=== PATIENT | female | born 1985 | race Caucasian/White ===

== ENCOUNTER 2018-06-30 21:31 | Emergency (ER) | payer SELFPAY ==
--- NOTE | 2018-06-30 21:45 | Emergency Department Report ---
Blank Doc - Documentation Documentation: This is a 32-year-old female that presents with vaginal bleeding. Stated is about 9 weeks and started 8 days ago. Pelvic pain without radiation. This initial assessment diagnostic orders/clinical plan/treatment(s) is/are subject to change based on patient's health status, clinical progression and re- assessment by fellow clinical providers in the ED. Further treatment and workup at subsequent clinical providers discretion. Patient/guardians urged not to el ope from ED s their condition may be serious if not clinically assessed and managed. Initial orders include: 1-Patient sent to [facility] for further evaluation and treatment 2- Labs 3- UA 4- US OB
[2018-06-30 22:07] LABS: Basophils % (Auto) 0.3 % (0.0-1.8); Eosinophils # (Auto) 0.1 K/mm3 (0.0-0.4); Eosinophils % (Auto) 0.9 % (0.0-4.3); Hematocrit 35.5 % (30.3-42.9); Hemoglobin 12.4 gm/dl (10.1-14.3); Lymphocytes # (Auto) 2.7 K/mm3 (1.2-5.4); Lymphocytes % (Auto) 32.4 % (13.4-35.0); Mean Corpuscular HGB Conc 35 % (30-34); Mean Corpuscular Volume 88 fl (79-97); Monocytes # (Auto) 0.6 K/mm3 (0.0-0.8); Platelet Count 289 K/mm3 (140-440); Red Blood Count 4.05 M/mm3 (3.65-5.03); Red Cell Distribution Width 15.2 % (13.2-15.2)
[2018-06-30] MEDS ORDERED: ZOFRAN ORAL LIQ PO ONE (23:29)
[2018-06-30] MEDS ORDERED: TYLENOL PO ONE (23:29)
--- NOTE | 2018-06-30 23:47 | Emergency Department Report ---
ED Female HPI - General Chief complaint: Vaginal Bleeding Stated complaint: BLEEDING 9 WEEKS PREGGERS Time Seen by Provider: 06/30/18 21:43 Source: patient, RN notes reviewed Mode of arrival: Ambulatory Limitations: Language Barrier - History of Present Illness Initial comments: [facility] This provider is conversational in Portuguese, and the patient has requested that her partner translate for her. This is a 32-year-old female who is 4, para 2, last menstrual period, April 23, with no chronic medical conditions. The patient presents to the emergency room with a complaint of vaginal bleeding and spotting for the past 8 days, increase in spotting today, and passing large clots and a mass earlier on today. The bleeding is intermittent, cramping, does not radiate anywhere, does not have exacerbating or relieving factors. No fevers, chills, upper abdominal pain, sore throat or other symptoms. Patient denies irritative/obstructive urinary symptoms. Patient has outpatient ultrasound with her, which is perform ed within the past week and a half, which indicates an intrauterine . MD Complaint: vaginal bleeding, pelvic pain -: Gradual Location: suprapubic Radiation: non-radiating Severity: mild Quality: cramping Consistency: intermittent Improves with: none Worsens with: none Are you Now?: Yes Associated Symptoms: vaginal bleeding, abdominal pain, loss of appetite. denies: vaginal discharge, nausea/vomiting, fever/chills, headaches, dysuria, hematuria, rash, seizure, shortness of breath, syncope, weakness - Related Data Sexually active: Yes Previous Rx's Medication Instructions Recorded Last Taken Type Ibuprofen [Motrin] 600 mg PO Q8H PRN #30 tablet 07/01/18 Unknown Rx Nitrofurantoin [place]/M-Cryst 100 mg PO Q12HR #14 capsule 07/01/18 Unknown Rx [Macrobid CAP] Allergies Allergy/AdvReac Type Severity Reaction Status Date / Time No Known Allergies Allergy Unverified 06/30/18 21:34 ED Review of Systems ROS: Stated complaint: BLEEDING 9 WEEKS PREGGERS Other details as noted in HPI Constitutional: malaise Eyes: denies: vision change ENT: denies: epistaxis Respiratory: denies: cough Cardiovascular: denies: chest pain Gastrointestinal: abdominal pain Genitourinary: abnormal menses. denies: dysuria Musculoskeletal: denies: back pain Skin: denies: lesions Neurological: denies: headache Psychiatric: anxiety ED Past Medical Hx - Past Medical History Hx Diabetes: Yes Hx Kidney Stones: Yes - Surgical History Past Surgical History?: No - Social History Smoking Status: Never Smoker Substance Use Type: None - Medications Home Medications: Home Medications Medication Instructions Recorded Confirmed Last Taken Type Ibuprofen [Motrin] 600 mg PO Q8H PRN #30 tablet 07/01/18 Unknown Rx Nitrofurantoin [place]/M-Cryst 100 mg PO Q12HR #14 capsule 07/01/18 Unknown Rx [Macrobid CAP] ED Physical Exam - General Limitations: Language Barrier General appearance: alert, in no apparent distress - Head Head exam: Present: atraumatic, normocephalic - Eye Eye exam: Present: normal appearance, EOMI. Absent: nystagmus - ENT ENT exam: Present: normal exam, normal orophraynx, mucous membranes moist, normal external ear exam - Neck Neck exam: Present: normal inspection, full ROM. Absent: tenderness, meningismus - Respiratory Respiratory exam: Present: normal lung sounds bilaterally. Absent: respiratory distress - Cardiovascular Cardiovascular Exam: Present: regular rate, normal rhythm, normal heart sounds. Absent: bradycardia, tachycardia, irregular rhythm, systolic murmur, diastolic m urmur, rubs, gallop - GI/Abdominal GI/Abdominal exam: Present: soft. Absent: distended, tenderness, guarding, rebound, rigid, pulsatile mass - External exam: Present: normal external exam, other (chaperoned by nurse Rigoberto Lugo). Absent: erythema, swelling, lesions, lacerations, ecchymosis Speculum exam: Present: vaginal bleeding - Extremities Exam Extremities exam: Present: normal inspection, full ROM, other (2+ pulses noted in the bilateral upper, lower extremities. Compartments soft. No long bony tenderness. The pelvis is stable.). Absent: pedal edema, joint swelling, calf tenderness - Back Exam Back exam: Present: normal inspection, full ROM. Absent: tenderness, CVA tenderness (R), paraspinal tenderness, vertebral tenderness - Neurological Exam Neurological exam: Present: alert, other (Extraocular movements intact. Tongue midline. No facial droop. Facial sensation intact to light touch in the V1, V2, V3 distribution bilaterally. 5 and 5 strength in 4 extremities.. Sensation is intact to light touch in 4 extremities.). Absent: motor sensory deficit - Psychiatric Psychiatric exam: Present: normal affect, normal mood - Skin Skin exam: Present: warm, dry, intact, normal color. Absent: rash ED Course Vital Signs 06/30/18 06/30/18 06/30/18 21:37 23:14 23:16 Temperature 98.2 F Pulse Rate 99 H 88 82 Respiratory 18 16 Rate Blood Pressure 122/75 111/49 O2 Sat by Pulse 99 Oximetry 06/30/18 07/01/18 23:59 01:06 Temperature Pulse Rate Respiratory 19 18 Rate Blood Pressure O2 Sat by Pulse 99 Oximetry - Reevaluation(s) Reevaluation #1: 06/30/18 23:57 Differential diagnosis, including but not limited to: Threatened miscarriage, inevitable miscarriage, incomplete miscarriage, retained products of conception Assessment and plan: 32-year-old female with reported vaginal bleeding, and passing large amount of tissue earlier on today. Patient has outpatient records with her, and they indicate sonographically proven intrauterine . History, physical concerning for spontaneous miscarriage. We will treat the patient's symptoms, and obtain ultrasound. Blood pressure stable, patient is Rh+. Reevaluation #2: 07/01/18 02:10 The patient is reassessed. No is identified. This is likely consistent with completed miscarriage. Explained this to patient. She is instructed to rest, avoid heavy lifting, and to follow-up with her leaded glass installer. ED Medical Decision Making - Lab Data Result diagrams: 06/30/18 21:49 Vital Signs 06/30/18 06/30/18 06/30/18 21:37 23:14 23:16 Temperature 98.2 F Pulse Rate 99 H 88 82 Respiratory 18 16 Rate Blood Pressure 122/75 111/49 O2 Sat by Pulse 99 Oximetry Lab Results 06/30/18 06/30/18 06/30/18 Range/Units 21:49 21:49 21:49 WBC 8.4 (4.5-11.0) K/mm3 RBC 4.05 (3.65-5.03) M/mm3 Hgb 12.4 (10.1-14.3) gm/dl Hct 35.5 (30.3-42.9) % MCV 88 (79-97) fl MCH 31 (28-32) pg MCHC 35 H (30-34) % RDW 15.2 (13.2-15.2) % Plt Count 289 (140-440) K/mm3 Lymph % (Auto) 32.4 (13.4-35.0) % [place] % (Auto) 7.0 (0.0-7.3) % Eos % (Auto) 0.9 (0.0-4.3) % Baso % (Auto) 0.3 (0.0-1.8) % Lymph # 2.7 (1.2-5.4) K/mm3 [place] # 0.6 (0.0-0.8) K/mm3 Eos # 0.1 (0.0-0.4) K/mm3 Baso # 0.0 (0.0-0.1) K/mm3 Seg Neutrophils % 59.4 (40.0-70.0) % Seg Neutrophils # 5.0 (1.8-7.7) K/mm3 HCG, Quant 16889 H (0-4) mIU/mL Blood Type O POSITIVE Antibody Screen Negative - Radiology Data Radiology results: report reviewed, image reviewed Print Report Referring Physician: JUDY SULLIVAN Patient Name: LEIGH OSBORNE Date of : 1985 Sex: Female Report Date: 2018-07-01 Report Status: [place] [address] Ultrasound Report Signed Patient: LEIGH OSBORNE MR#: [id number] : 1985 Acct:[id number] Age/Sex: 32 / F ADM Date: 06/30/18 Loc: ED Attending Dr: Ordering Physician: JUDY SULLIVAN NP Date of Service: 06/30/18 Procedure(s): US OB <= 14 weeks fetus Accession Number(s): [id number] cc: JUDY SULLIVAN NP FINAL REPORT PROCEDURE: US OB LESS THAN 14 WEEKS TECHNIQUE: Real-time TRANSABDOMINAL sonography of the uterus, placenta, amniotic fluid, adnexa, and fetus was performed with image documentation. Measurements were obtained to det ermine age/size. M-mode Doppler was used to document heartbeat. HISTORY: vaginal bleeding COMPARISON: No prior studies are available for comparison. FINDINGS: No intrauterine or-ectopic is identified. Uterus measures 10.9 x 5.5 x 5 centimeters. The endometrium is thickened measuring 2.1 centimeters. There is no endometrial fluid. The right ovary measures 3.2 x 1 x 2.4 centimeters. There is an 8 millimeter complex cyst. Left ovary measures 3.1 x 1.7 x 3.3 centimeters. There is complex cysts measuring 18 millimeters and a 2nd complex cyst measuring 17 millimeters. There is no free fluid. IMPRESSION: No is identified. There are complex ovarian cysts but no specific evidence of ectopic . Transcribed By: CO Dictated By: ZAID HAMM MD Electronically Authenticated By: ZAID HAMM MD Signed Date/Time: 07/01/18 0130 Critical care attestation.: If time is entered above; I have spent that time in minutes in the direct care of this critically ill patient, excluding procedure time. ED Disposition Clinical Impression: Miscarriage Disposition: DC-01 TO HOME OR SELFCARE Is pt being admited?: No Does the pt Need Aspirin: No Condition: Stable Instructions: Spontaneous Miscarriage (ED) Additional Instructions: Ultrasound did not demonstrate intrauterine . Patient most likely had complete miscarriage. Rest, avoid heavy lifting, and avoid strenuous physical activity. Do not have sex until cleared by your leaded glass installer. Follow-up with your RECOVERY AGENT doctor within the next 3-5 days. Repeat checkup/evaluation. Take the antibiotics as directed as the urine test demonstrated bacteria in the urine. Return to the emergency room right away with new pain, worsening pain, migration of pain, bleeding within 2 pads soaked per hour, lightheadedness, loss of consciousness, change in mental status, confusion. La ecografa no demostr embarazo intrauterino. El paciente probablemente tuvo un aborto espontneo completo. Descanse, evite levantar objetos pesados ??y evite la actividad fsica extenuante. No tenga relaciones sexuales hasta que rowell gineclogo lo apruebe. Mario un seguimiento con rowell mdico obstetra / gineclogo en los prximos 3 a 5 carcamo. Repita el chequeo / evaluacin. [place] los antibiticos segn las indicaciones, ya que la prueba de orina demostr bacterias en la orina. Regrese a la arsalan de emergencias de inmediato con dolor nuevo, dolor que empeora, migracin del dolor, sangrado dentro de 2 almohadillas empapadas por hora, mareos, prdida de conciencia, cambio en el estado mental, confusin. Referrals: [facility] [Provider Group] - 3-5 Days [facility] [Provider Group] - 3-5 Days [facility] [Provider Group] - 3-5 Days Print Language: FINNISH
[2018-07-01 00:19] LABS: Bilirubin,Urine NEG (Negative); Blood,Urine LG (Negative); Color,Urine Red (Yellow); Urobilinogen,Urine < 2.0 mg/dL (<2.0)
[2018-07-01 00:20] LABS: RBC,Urine > 182.0 /HPF (0.0-6.0)
[2018-07-01 00:21] LABS: Hyaline Casts,Urine 1 /LPF; Mucus,Urine 2+ /HPF; WBC,Urine > 182.0 /HPF (0.0-6.0)
[2018-07-01 00:22] LABS: Bacteria,Urine 2+ /HPF (Negative)
[2018-07-01 00:23] LABS: Amorphous Crystals,Urine 1+
--- NOTE | 2018-07-01 01:30 | Ultrasound Report ---
FINAL REPORT PROCEDURE: US OB TRANSVAGINAL TECHNIQUE: Real-time transvaginal sonography of the uterus, placenta, amniotic fluid, adnexa, and fe tus was performed with image documentation. Measurements were obtained to determine age/size. M -mode Doppler was used to document heartbeat. CPT 29796 HISTORY: vaginal bleeding COMPARISON: No prior studies are available for comparison. FINDINGS: No intrauterine or-ectopic is identified. Uterus measures 10.9 x 5.5 x 5 centimeters. The endometrium is thickened measuring 2.1 centimeters. T here is no endometrial fluid. The right ovary measures 3.2 x 1 x 2.4 centimeters. There is an 8 millimeter complex cyst. Left ovary measures 3.1 x 1.7 x 3.3 centimeters. There is complex cysts measuring 18 millimeters and a 2nd complex cyst measuring 17 millimeters. There is no free fluid. IMPRESSION: No is identified. There are complex ovarian cysts but no specific evidence of ectopic pregn farrah.
--- NOTE | 2018-07-01 01:30 | Ultrasound Report ---
FINAL REPORT PROCEDURE: US OB LESS THAN 14 WEEKS TECHNIQUE: Real-time TRANSABDOMINAL sonography of the uterus, placenta, amniotic fluid, adnexa, and fetus was performed with image documentation. Measurements were obtained to determine age/size. M-mode Doppler was used to document heartbeat. HISTORY: vaginal bleeding COMPARISON: No prior studies are available for comparison. FINDINGS: No intrauterine or-ectopic is identified. Uterus measures 10.9 x 5.5 x 5 centimeters. The endometrium is thickened measuring 2.1 centimeters. T here is no endometrial fluid. The right ovary measures 3.2 x 1 x 2.4 centimeters. There is an 8 millimeter complex cyst. Left ovary measures 3.1 x 1.7 x 3.3 centimeters. There is complex cysts measuring 18 millimeters and a 2nd complex cyst measuring 17 millimeters. There is no free fluid. IMPRESSION: No is identified. There are complex ovarian cysts but no specific evidence of ectopic pregn farrah.
[2018-07-01 02:23] VITALS: BP 118/57
== END 2018-07-01 02:32 | disposition home or self-care (01) ==
LOC: ED 21:31
DX: O03.9 Complete or unspecified spontaneous abortion without complication (principal); Z3A.09 9 weeks gestation of pregnancy
CPT/HCPCS: 36415; 76801; 76817; 81001; 84702; 85025; 86850; 86900; 86901; 99284; Q0162

== ENCOUNTER 2018-10-03 19:05 | Emergency (ER) | payer SELFPAY ==
[2018-10-03 20:06] LABS: Basophils % (Auto) 0.2 % (0.0-1.8); Eosinophils # (Auto) 0.1 K/mm3 (0.0-0.4); Eosinophils % (Auto) 0.6 % (0.0-4.3); Hemoglobin 12.2 gm/dl (10.1-14.3); Lymphocytes % (Auto) 27.4 % (13.4-35.0); Mean Corpuscular HGB Conc 36 % (30-34); Mean Corpuscular Volume 88 fl (79-97); Monocytes # (Auto) 0.8 K/mm3 (0.0-0.8); Monocytes % (Auto) 7.8 % (0.0-7.3); Platelet Count 303 K/mm3 (140-440); Red Blood Count 3.85 M/mm3 (3.65-5.03)
[2018-10-03 20:19] LABS: Alanine Aminotransferase 13 units/L (7-56); Albumin 3.6 g/dL (3.9-5); BUN/Creatinine Ratio 26; Blood Urea Nitrogen 13 mg/dL (7-17); Calcium 8.5 mg/dL (8.4-10.2); Hemolysis Index 6
[2018-10-03] MEDS ORDERED: NORCO 5/325 PO ONE (20:50)
[2018-10-03 21:09] LABS: Bilirubin,Urine NEG (Negative); Blood,Urine NEG (Negative); Color,Urine Yellow (Yellow); Mucus,Urine FEW /HPF; Protein,Urine <15 mg/dL mg/dL (Negative); Urobilinogen,Urine < 2.0 mg/dL (<2.0)
[2018-10-03 21:12] LABS: HCG Qualitative,Urine Positive (Negative)
--- NOTE | 2018-10-03 22:56 | Emergency Department Report ---
ED Abdominal Pain HPI - General Chief Complaint: Abdominal Pain Stated Complaint: VAGINAL/LEG PAIN Time Seen by Provider: 10/03/18 20:36 Source: patient, family Mode of arrival: Ambulatory Limitations: Language Barrier ( translating at bedside) - History of Present Illness Initial Comments: 32-year-old female presents to ED with 5 day history of left pelvic pain. This pain radiates into the left leg. Patient states it seems as if she can feel a mass there. Denies nausea, vomiting, fever, urinary frequency, vaginal discharge, vaginal bleeding. Patient reports LMP was one month ago. MD Complaint: abdominal pain -: days(s) (5) Location: LLQ Radiation: other (left leg) Migration to: no migration Severity: moderate Severity scale (0 -10): 4 Quality: fullness, sharp Consistency: constant Improves With: nothing Worsens With: other (walking) Associated Symptoms: denies: nausea, vomiting, diarrhea, fever, dysuria Treatments Prior to Arrival: NSAIDs - Related Data LMP (females 10-50): 1 month Previous Rx's Medication Instructions Recorded Last Taken Type Ibuprofen [Motrin] 600 mg PO Q8H PRN #30 tablet 07/01/18 Unknown Rx Nitrofurantoin [place]/M-Cryst 100 mg PO Q12HR #14 capsule 07/01/18 Unknown Rx [Macrobid CAP] Allergies Allergy/AdvReac Type Severity Reaction Status Date / Time No Known Allergies Allergy Verified 10/03/18 19:32 ED Review of Systems ROS: Stated complaint: VAGINAL/LEG PAIN Other details as noted in HPI Comment: All other systems reviewed and negative Constitutional: denies: chills, fever Gastrointestinal: abdominal pain. denies: nausea, vomiting Genitourinary: denies: dysuria, frequency, discharge ED Past Medical Hx - Past Medical History Previous Medical History?: Yes Hx Diabetes: Yes Hx Kidney Stones: Yes - Surgical History Past Surgical History?: No - Social History Smoking Status: Never Smoker Substance Use Type: None - Medications Home Medications: Home Medications Medication Instructions Recorded Confirmed Last Taken Type Ibuprofen [Motrin] 600 mg PO Q8H PRN #30 tablet 07/01/18 Unknown Rx Nitrofurantoin [place]/M-Cryst 100 mg PO Q12HR #14 capsule 07/01/18 Unknown Rx [Macrobid CAP] ED Physical Exam - General Limitations: No Limitations General appearance: alert, in no apparent distress, obese - Head Head exam: Present: atraumatic, normocephalic - Eye Eye exam: Present: normal appearance - ENT ENT exam: Present: mucous membranes moist - Respiratory Respiratory exam: Present: normal lung sounds bilaterally. Absent: respiratory distress - Cardiovascular Cardiovascular Exam: Present: regular rate, normal rhythm - GI/Abdominal GI/Abdominal exam: Present: soft, tenderness (tenderness to left suprapubic area w/ small mass present). Absent: distended - External exam: Present: normal external exam Speculum exam: Present: cervical discharge Bi-manual exam: Present: normal bi-manual exam, adnexal mass (left). Absent: cervical motion tendernes - Extremities Exam Extremities exam: Present: normal inspection - Neurological Exam Neurological exam: Present: alert, oriented X3 - Psychiatric Psychiatric exam: Present: normal affect, normal mood - Skin Skin exam: Present: warm, dry, intact, normal color. Absent: rash ED Course Vital Signs 10/03/18 10/03/18 10/03/18 19:09 19:32 21:00 Temperature 97.9 F 97.9 F Pulse Rate 98 H 99 H Respiratory 18 16 Rate Blood Pressure 124/78 118/75 Blood Pressure 124/78 [Left] O2 Sat by Pulse 100 100 100 Oximetry 10/03/18 22:00 Temperature Pulse Rate Respiratory Rate Blood Pressure 110/67 Blood Pressure [Left] O2 Sat by Pulse 99 Oximetry ED Medical Decision Making - Lab Data Result diagrams: 10/03/18 19:44 10/03/18 19:44 - Radiology Data Radiology results: report reviewed, image reviewed - Medical Decision Making 32 yo F w/ 5wk gestation IUP, 10 cm left adnexal mass. Pt states she was told previously that she had an ovarian cyst but is unsure which side. Pt advised to take tylenol for pain and follow-up w/ FITNESS STUDIES TEACHER. Return precaution given - Differential Diagnosis ovarian cyst, ectopic preg, ovarian torsion Critical care attestation.: If time is entered above; I have spent that time in minutes in the direct care of this critically ill patient, excluding procedure time. ED Disposition Clinical Impression: 5 weeks gestation of , Adnexal mass Disposition: TO HOME OR SELFCARE Is pt being admited?: No Condition: Stable Instructions: (ED), Ovarian Cyst (ED) Referrals: [facility], MD [Primary Care Provider] - 3-5 Days MARY MYERS MD [Staff Physician] - 3-5 Days Time of Disposition: 23:42
[2018-10-03 23:29] VITALS: BP 110/67
--- NOTE | 2018-10-03 23:30 | Ultrasound Report ---
PROCEDURE: US OB <= 14 WEEKS FETUS TECHNIQUE: Real-time transabdominal sonography of the uterus, placenta, amniotic fluid, adnexa, and fetus was performed with image documentation. Measurements were obtained to determine age/size. M-mode Doppler was used to document heartbeat. ADDITIONAL GESTATION: None. HISTORY: L pelvic pain COMPARISONS: None . FINDINGS: Gestational Sac: Gestational sac size is 7 mm corresponds to gestational age of approximately 5 week s. A yolk sac is identified. No evidence of a pole. Placenta: Normal Amniotic fluid: Appropriate for gestational age. Cervix: Normal. Right Ovary: There is a dominant cyst measuring 39 mm . Left Ovary: Large mixed echogenic region off of the left adnexal/ovary area measures up to 10 cm. Th e differential is extensive for this region and will include a mass as well as infectious etiology. T here is good flow to the left ovary/adnexal region. . There is no fluid in the lower pelvis. The findings are most consistent with an early intrauterine . Follow-up studies may include repeat ultrasound examination approximately 14 days IMPRESSION: There is a gestational sac within the uterus. The uterine age is approximately 5 weeks. There is a yo lk sac identified. No pole is seen at this time. There is a dominant cyst on the right ovary this measures 39 mm. There is a large mixed echogenic region off of the left adnexa/ovary area, this measures up to 10 cm. There is good blood flow to the left ovary/adnexal region. The differential is extensive and will in clude a mass as well as infectious etiology. There is no fluid in the lower pelvis. This document is electronically signed by Leydi Holland DO., Oct 03 2018 11:28:14 PM ET
== END 2018-10-04 00:05 | disposition home or self-care (01) ==
LOC: ED 19:05
DX: O26.891 Other specified pregnancy related conditions, first trimester (principal); E11.9 Type 2 diabetes mellitus without complications; Z3A.01 Less than 8 weeks gestation of pregnancy
CPT/HCPCS: 36415; 76801; 76817; 80053; 81001; 81025; 84702; 85025; 87210; 87591

== ENCOUNTER 2019-05-25 22:16 | Inpatient (IN) | payer OTHER ==
[2019-05-25] MEDS ORDERED: LACTATED RINGERS 1,000 ML ONE (22:34)
[2019-05-25] MEDS ORDERED: OXYTOCIN 20 UNIT/1000ML DRIP 20,000 MILLIUNITS/1,000 ML BAG IV ONE (22:35)
[2019-05-25] MEDS ORDERED: MINERAL OIL 30 ML ORAL LIQD PO PRN ×2 (22:42→23:14)
[2019-05-25] MEDS ORDERED: ePHEDrine SULFATE 50 MG/1 ML INJ IV PRN ×2 (22:42→23:14)
[2019-05-25] MEDS ORDERED: TERBUTALINE 1 MG/1 ML INJ SUB-Q PRN ×2 (22:42→23:14)
[2019-05-25] MEDS ORDERED: LIDOCAINE (2%) 20 MG/1 ML VIAL 20 ML MDV INFILTRATI ONE ×2 (22:42→23:14)
[2019-05-25] MEDS ORDERED: TERBUTALINE 1 MG/1 ML INJ IVP PRN ×2 (22:42→23:14)
[2019-05-25] MEDS ORDERED: fentaNYL 100 MCG/2 ML INJ IV PRN (22:42)
[2019-05-25] MEDS ORDERED: AMPICILLIN/NS 2 GM/100 ML 2 GM/100 ML BAG IV ONE (22:42)
[2019-05-25] MEDS ORDERED: LACTATED RINGERS 1,000 ML IV SCH ×2 (23:00→23:45)
[2019-05-25] MEDS ORDERED: OXYTOCIN 20 UNIT/1000ML DRIP 20 UNITS/1,000 ML BAG IV SCH ×2 (23:00→23:45)
[2019-05-25] MEDS ORDERED: NALOXONE 0.4 MG/1 ML INJ IV PRN (23:14)
[2019-05-25] MEDS ORDERED: BUTORPHANOL 2 MG/1 ML INJ IV PRN (23:14)
[2019-05-25 23:39] LABS: Hematocrit 31.9 % (30.3-42.9); Hemoglobin 10.7 gm/dl (10.1-14.3); Mean Corpuscular HGB Conc 34 % (30-34); Mean Corpuscular Volume 90 fl (79-97); Platelet Count 154 K/mm3 (140-440); Red Blood Count 3.54 M/mm3 (3.65-5.03); Red Cell Distribution Width 16.3 % (13.2-15.2)
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
[2019-05-25] MEDS ORDERED: OXYTOCIN DRIP 30 UNITS/500 ML BAG IV SCH (23:45)
[2019-05-26] MEDS ORDERED: miSOPROStol 200 MCG TAB ONE (01:33)
[2019-05-26] MEDS ORDERED: miSOPROStol 100 MCG TAB ONE (01:35)
[2019-05-26] MEDS ORDERED: miSOPROStol 200 MCG TAB PR ONE (01:39)
[2019-05-26] MEDS ORDERED: miSOPROStol 100 MCG TAB PR ONE (01:40)
[2019-05-26] MEDS ORDERED: diphenhydrAMINE 25 MG CAP PO PRN (01:49)
[2019-05-26] MEDS ORDERED: INSULIN REGULAR, HUMAN 100 UNITS/1 ML SUB-Q SCH ×2 (02:00→22:00)
[2019-05-26] MEDS ORDERED: IBUPROFEN 600 MG TAB PO SCH (02:00)
--- NOTE | 2019-05-26 02:08 | Procedure Note ---
OB Delivery Note - Delivery Date of Delivery: 05/26/19 (0126) Surgeon: EDY BELTRAN Estimated blood loss: 200cc - Vaginal Delivery presentation: vertex Delivery position: OA Intrapartum events: meconium, other(please specify) (diabetic) Delivery induction: none Delivery augmentation: rupture of membranes, pitocin Delivery monitor: external FHT, external uterine Route of delivery: Delivery placenta: spontaneous Delivery cord: 3 umbilical vessels Episiotomy: none Delivery laceration: none Anesthesia: none Delivery comments: of a live 9'3 female over a intact perineum under IV pain control with Apgars of 8 and 9 at 0126 on 05/26/2019. Cord double clamped and cut by PORFIRIO Beltran, not stimulated and handed directly to awaiting NICU/RESP team due to thick meconium. Spontaneous delivery of placenta complete and intact with [place] side presenting at 0130. Fundus is firm and midline; Lochia is scant. 800mcg of Cytotec placed per rectum due rapid labor, morbid obesity, and large baby. GBS prophylaxis X1. Cord blood collected. - Infant A at 1 minute: 8 at 5 minutes: 9 Gender: Female (9'3)
[2019-05-26] MEDS ORDERED: AMPICILLIN/NS 1 GM/50 ML 1 GM/50 ML BAG IV SCH (02:42)
[2019-05-26 05:27] LABS: Alanine Aminotransferase 11 units/L (7-56)
[2019-05-26 05:51] LABS: Uric Acid 5.5 mg/dL (3.5-7.6)
[2019-05-26] MEDS: HYDROcodone/ACETAMINOPHEN 5-325 MG TAB PO PRN ×3 (06:54→18:13)
[2019-05-26] MEDS: INSULIN REGULAR, HUMAN 100 UNITS/1 ML SUB-Q SCH ×4 (08:14→16:14)
[2019-05-26] MEDS: FERROUS SULFATE 325 MG TAB PO SCH (10:08)
[2019-05-26 14:01] LABS: Hematocrit 30.7 % (30.3-42.9); Hemoglobin 10.4 gm/dl (10.1-14.3)
[2019-05-27] MEDS: INSULIN REGULAR, HUMAN 100 UNITS/1 ML SUB-Q SCH ×3 (07:49→21:43)
[2019-05-27] MEDS: FERROUS SULFATE 325 MG TAB PO SCH (09:24)
[2019-05-27] MEDS: HYDROcodone/ACETAMINOPHEN 5-325 MG TAB PO PRN ×2 (09:24→23:51)
[2019-05-27 10:13] LABS: Hematocrit 29.6 % (30.3-42.9); Hemoglobin 10.1 gm/dl (10.1-14.3); Mean Corpuscular HGB Conc 34 % (30-34); Mean Corpuscular Volume 91 fl (79-97); Platelet Count 147 K/mm3 (140-440); Red Blood Count 3.26 M/mm3 (3.65-5.03); Red Cell Distribution Width 16.9 % (13.2-15.2)
[2019-05-27 10:27] LABS: Uric Acid 6.6 mg/dL (3.5-7.6)
--- NOTE | 2019-05-27 11:17 | Progress Note ---
Assessment and Plan - Patient Problems (1) Status post normal vaginal delivery Current Visit: Yes Status: Acute Plan to address problem: PPD 1 - stable Continue routine orders Anticipate discharge in 24 hours (2) Single live Current Visit: Yes Status: Acute (3) Pregestational diabetes mellitus, modified White class B Current Visit: Yes Status: Acute Plan to address problem: Last BG 62 Continue accuchecks 4x/d (fasting and 2hr PP) Continue ADA diet (4) Blood pressure elevated without history of HTN Current Visit: Yes Status: Acute Plan to address problem: PIH labs WNL Will start patient on an antihypertensive if persistent Subjective - Subjective Date of service: 05/27/19 Principal diagnosis: PPD #1; s/p Interval history: see H&P and OB Delivery Procedure Note Patient reports: appetite normal, voiding normally, pain poorly controlled (pain level 4-5. Received pain medication 30 mins ago), no dizzy ambulation [place]: doing well, bottle feeding Objective - Vital Signs Latest vital signs: Vital Signs Temp Pulse Resp BP Pulse Ox 05/27/19 07:43 84 150/87 97 05/27/19 00:23 98.3 F 92 H 18 134/71 96 05/26/19 16:14 98.6 F 84 28 H 142/78 97 05/26/19 11:50 97.8 F 90 20 113/55 96 Intake and Output 05/26/19 05/27/19 05/27/19 23:59 07:59 15:59 Intake Total 120 480 Balance 120 480 Intake: Oral 120 Intake, Free Water 480 Other: Total, Intake Amount 120 # Voids Void 1 2 - Exam Abdomen: Present: normal appearance, soft Vulva: both: normal Uterus: Present: normal, firm, fundal height at umbilicus Extremities: Present: normal Comments: small lochia - Labs Labs: Abnormal lab results 05/26/19 05/26/19 05/27/19 Range/Units 11:43 22:51 07:53 RBC (3.65-5.03) M/mm3 Hct (30.3-42.9) % RDW (13.2-15.2) % POC Glucose 206 H 112 H 62 L (70-105) Lactate Dehydrogenase (91-180) units/L 05/27/19 05/27/19 Range/Units 09:36 09:36 RBC 3.26 L (3.65-5.03) M/mm3 Hct 29.6 L (30.3-42.9) % RDW 16.9 H (13.2-15.2) % POC Glucose (70-105) Lactate Dehydrogenase 264 H (91-180) units/L
[2019-05-28] MEDS: FERROUS SULFATE 325 MG TAB PO SCH (09:52)
[2019-05-28] MEDS: HYDROcodone/ACETAMINOPHEN 5-325 MG TAB PO PRN (10:07)
--- NOTE | 2019-05-28 11:06 | Progress Note ---
Assessment and Plan A: day 2 S/P . Type 1 diabetes. Elevated blood pressures, improving with PO Labetalol. P: Continue PO Labetalol. Repeat labs. Monitor blood sugar. Will consult with re: this patient when labs are available. Subjective - Subjective Date of service: 05/28/19 Principal diagnosis: PPD #2; s/p Interval history: day 2 S/P . Patient has had elevated blood pressures; now controlled with PO Labetalol. Patient denies headache, visual disturbance, nausea or vomiting, abdominal pain. Voiding without difficulty, ambulating well, tolerating a regular diet. Patient reports: appetite normal, voiding normally, pain well controlled, flatus, ambulating normally, no dizzy ambulation, no nauseated : doing well Objective - Vital Signs Latest vital signs: Vital Signs Temp Pulse Resp BP BP Pulse Ox 05/28/19 09:52 71 132/74 05/28/19 07:47 98.0 F 71 18 132/74 98 05/28/19 00:00 98.6 F 70 18 121/78 05/27/19 21:57 98.6 F 80 18 148/80 05/27/19 21:49 80 148/80 05/27/19 16:25 98.4 F 79 18 133/73 97 05/27/19 14:19 83 140/78 05/27/19 12:39 97.5 F L 83 18 140/78 97 Intake and Output 05/27/19 05/28/19 05/28/19 23:59 07:59 15:59 Intake Total 300 600 Balance 300 600 Intake: Intake, Free Water 300 600 Other: # Voids Void 1 - Exam Cardiovascular: Present: Regular rate, Normal S1, Normal S2 Lungs: Present: Clear to auscultation Abdomen: Present: normal appearance, soft, normal bowel sounds. Absent: distention, tenderness, guarding, rigidity Uterus: Present: normal, firm, fundal height below umbilicus. Absent: bogginess, tenderness Extremities: Present: normal, edema (trace edema in ankles and feet bilaterally). Absent: tenderness - Labs Labs: Abnormal lab results 05/27/19 05/27/19 Range/Units 15:12 19:46 Glucose 120 H 201 H (65-100) mg/dL
[2019-05-28 14:42] LABS: Uric Acid 6.1 mg/dL (3.5-7.6)
[2019-05-28 14:43] LABS: Alanine Aminotransferase 24 units/L (7-56); Albumin 2.9 g/dL (3.9-5); BUN/Creatinine Ratio 24; Blood Urea Nitrogen 12 mg/dL (7-17); Hemolysis Index 5
[2019-05-28 16:49] VITALS: BP 129/71
--- NOTE | 2019-05-28 17:27 | Discharge Summary ---
Providers - Providers Date of Admission: 05/25/19 23:14 Date of discharge: 05/28/19 Attending physician: WAGNER SINGLETON MD Primary care physician: WAGNER SINGLETON MD Hospitalization Reason for admission: active labor Delivery: Episiotomy: none Other procedures: none complications: none Discharge diagnosis: IUP at term delivered baby: female Pertinent studies: Labs Hospital course: Stable hospital course. Condition at discharge: Good Disposition: DC-01 TO HOME OR SELFCARE - Discharge Diagnoses (1) Term delivered Status: Acute Plan - Provider Discharge Summary Activity: routine, no sex for 6 weeks, no heavy lifting 4 weeks, no strenuous exercise Diet: routine Instructions: routine Additional instructions: Continue taking your vitamins and iron supplements at home. See your diabetes doctor as soon as possible. Follow up at the OB clinic this week for BP check. Patient has been cleared for discharge today by Dr. Singleton. Call your doctor immediately for: * Fever > 100.5 * Heavy vaginal bleeding ( >1 pad per hour) * Severe persistent headache * Shortness of breath * Reddened, hot, painful area to leg or breast - Follow up plan Follow up: WAGNER SINGLETON MD [Primary Care Provider] - 7 Days
== END 2019-05-28 18:10 | disposition home or self-care (01) | DRG 805 ==
LOC: TRG 22:16 → LD 23:14 → OB 05-26 04:48
PROVIDERS: ADMIT Obstetrics & Gynecology; ATTEND Obstetrics & Gynecology
PROC: 10E0XZZ Delivery of Products of Conception, External Approach (ICD-10-PCS; principal; 2019-05-26)
DX: O77.0 Labor and delivery complicated by meconium in amniotic fluid (principal); O24.02 Pre-existing type 1 diabetes mellitus, in childbirth; Z37.0 Single live birth; O99.824 Streptococcus B carrier state complicating childbirth; O99.214 Obesity complicating childbirth; E66.01 Morbid (severe) obesity due to excess calories; E10.9 Type 1 diabetes mellitus without complications; Z79.4 Long term (current) use of insulin; Z3A.38 38 weeks gestation of pregnancy; Z83.3 Family history of diabetes mellitus; Z82.49 Family history of ischemic heart disease and other diseases of the circulatory system; Z90.49 Acquired absence of other specified parts of digestive tract
CPT/HCPCS: 36415; 80053; 82565; 82947; 82962; 83615; 84450; 84460; 84550; 85014; 85018; 85027; 85049; 86850; 86900; 86901; 88307; G0378; J0290; J0595; J1815; J2590; J7120